=== PATIENT | female | born 1975 | race Caucasian/White ===

== ENCOUNTER → 2019-07-04 07:36 | Outpatient (BNVA) | payer MEDICARE, SELFPAY | PROVIDERS: Family Provider Family Medicine; PCP Family Medicine; Visit Provider Psychiatry & Neurology Psychiatry | DX: F33.2 Major depressive disorder, recurrent severe without psychotic features (principal); F41.1 Generalized anxiety disorder | CPT/HCPCS: 99214 ==

== ENCOUNTER → 2019-07-25 07:35 | Outpatient (BNVA) | payer MEDICARE, SELFPAY | PROVIDERS: Family Provider Family Medicine; PCP Family Medicine; Visit Provider Psychiatry & Neurology Psychiatry | DX: F33.2 Major depressive disorder, recurrent severe without psychotic features (principal); F41.1 Generalized anxiety disorder | CPT/HCPCS: 99214 ==

== ENCOUNTER → 2019-08-23 07:33 | Outpatient (BNVA) | payer MEDICARE, SELFPAY | PROVIDERS: Family Provider Family Medicine; PCP Family Medicine; Visit Provider Psychiatry & Neurology Psychiatry | DX: F41.1 Generalized anxiety disorder (principal); F33.42 Major depressive disorder, recurrent, in full remission; F43.12 Post-traumatic stress disorder, chronic | CPT/HCPCS: 99214 ==

== ENCOUNTER → 2019-09-13 08:03 | Outpatient (BNVA) | payer MEDICARE, SELFPAY | PROVIDERS: Family Provider Family Medicine; PCP Family Medicine; Visit Provider Psychiatry & Neurology Psychiatry | DX: F41.1 Generalized anxiety disorder (principal); F33.42 Major depressive disorder, recurrent, in full remission | CPT/HCPCS: 99214 ==

== ENCOUNTER → 2019-10-17 09:27 | Outpatient (BNVA) | payer MEDICARE, MEDICAID, SELFPAY | PROVIDERS: Family Provider Family Medicine; PCP Family Medicine; Visit Provider Psychiatry & Neurology Psychiatry | DX: F41.1 Generalized anxiety disorder (principal); F33.42 Major depressive disorder, recurrent, in full remission; F43.12 Post-traumatic stress disorder, chronic | CPT/HCPCS: 99213 ==

== ENCOUNTER 2019-11-07 12:31 | Outpatient (CLI) | payer MEDICARE, SELFPAY ==
--- NOTE | 2019-11-07 12:38 | MR_ITS ---
WS: [id number] MRI LUMBAR SPINE NONCONTRAST TECHNIQUE: Sagittal T1, T2 and STIR imaging. Axial T1 and T2 imaging. CLINICAL INFORMATION: LUMBAR RADICULITIS COMPARISON: None. FINDINGS: Mild lumbar curve. No acute compression. Disc space narrowing worse L4-L5 and L5-S1 with endplate deg enerative changes. No acute appearing compression fractures. L1-L2: Minimal disc bulging. Mild facet arthropathy. Spinal canal and foramen are patent. L2-L3: Mild facet arthropathy. Spinal canal and foramen are patent. L3-L4: Minimal annular bulging. Moderate facet arthropathy. Spinal canal and foramen are patent. L4-L5: Mild disc bulging with osteophytic ridging. Narrowing of subarticular recess bilaterally. Mild bilateral foraminal narrowing. L5-S1: Mild disc bulging with osteophytic ridging. Tiny central disc protrusion. Moderate facet arthr opathy. Mild to moderate bilateral foraminal narrowing with contact of the exiting L5 nerve roots ha aterally. Postoperative changes in the cervical spine. Disc osteophyte protrusion in the lower cervical spine w ith mild central canal stenosis C6-7. MR/MR lumbar spine wo con* [id number] IMPRESSION: 1. Mild lumbar curve. No acute compression. No high-grade central canal stenos is. 2. Disc bulging L4-5 with narrowing of the subarticular recess bilaterally and contact of the traversing L5 nerve roots. Mild right greater than left bony fo raminal narrowing. 3. Disc osteophyte complex L5-S1 with endplate ridging. Mild to moderate bilat eral foraminal narrowing with contact of the exiting L5 nerve roots. 4. Mild to moderate facet arthropathy L4-L5 and L5-S1. 5. Prior postoperative changes cervical spine with mild central canal stenosis in the lower cervical spine C6-7.
== END 2019-11-07 12:32 | disposition home or self-care (01) ==
LOC: RADWPI 12:36
PROVIDERS: Family Provider Family Medicine; PCP Family Medicine; Visit Provider Nurse Practitioner
DX: M54.16 Radiculopathy, lumbar region (principal); M51.26 Other intervertebral disc displacement, lumbar region; M25.78 Osteophyte, vertebrae; M47.816 Spondylosis without myelopathy or radiculopathy, lumbar region; M47.817 Spondylosis without myelopathy or radiculopathy, lumbosacral region; M48.02 Spinal stenosis, cervical region
CPT/HCPCS: 72148

== ENCOUNTER → 2019-12-05 08:05 | Outpatient (BNVA) | payer MEDICARE, SELFPAY | PROVIDERS: Family Provider Family Medicine; PCP Family Medicine; Visit Provider Psychiatry & Neurology Psychiatry | DX: F41.1 Generalized anxiety disorder (principal); F33.42 Major depressive disorder, recurrent, in full remission | CPT/HCPCS: 99213 ==

== ENCOUNTER 2020-07-28 09:24 | Outpatient (CLI) | payer MEDICARE, SELFPAY ==
--- NOTE | 2020-07-28 09:31 | MM_ITS ---
WS: [id number] BILATERAL DIGITAL SCREENING MAMMOGRAPHY WITH CAD CLINICAL INFORMATION: SCREENING HISTORY: Screening mammogram. No current complaints. COMPARISON: 015 TECHNIQUE: Bilateral CC and MLO views. FINDINGS: The breasts are composed of heterogeneous fibroglandular density tissue, which can limit the detectio n of small underlying mass lesions. Stable 12 mm asymmetric density upper outer left breast was previ ously evaluated in 2015. No suspicious mass, asymmetry, calcifications, or architectural distortion. No evidence of malignancy. MM/[place] [id number] IMPRESSION: BI-RADS: 2-Benign FOLLOW UP: 1 Year Follow-up Recommend return to annual screening mammography.
== END 2020-07-28 09:25 | disposition home or self-care (01) ==
LOC: RADSHAW 09:29
PROVIDERS: Family Provider Family Medicine; PCP Family Medicine; Visit Provider Family Medicine
DX: Z12.31 Encounter for screening mammogram for malignant neoplasm of breast (principal)
CPT/HCPCS: 77067

== ENCOUNTER → 2020-11-10 07:26 | Outpatient (BNVA) | payer MEDICARE, MEDICAID, SELFPAY | PROVIDERS: Family Provider Family Medicine; PCP Family Medicine; Visit Provider Psychiatry & Neurology Psychiatry | DX: F41.1 Generalized anxiety disorder (principal); F33.0 Major depressive disorder, recurrent, mild | CPT/HCPCS: 99215 ==

== ENCOUNTER → 2020-12-24 08:17 | Outpatient (BNVA) | payer MEDICARE, MEDICAID, SELFPAY | PROVIDERS: Family Provider Family Medicine; PCP Family Medicine; Visit Provider Psychiatry & Neurology Psychiatry | DX: F33.0 Major depressive disorder, recurrent, mild (principal); F41.1 Generalized anxiety disorder; R23.2 Flushing | CPT/HCPCS: 99214 ==

== ENCOUNTER → 2021-03-25 07:00 | Outpatient (BNVA) | payer MEDICARE, MEDICAID, SELFPAY | PROVIDERS: Family Provider Family Medicine; PCP Family Medicine; Visit Provider Psychiatry & Neurology Psychiatry | DX: F33.0 Major depressive disorder, recurrent, mild (principal); F41.1 Generalized anxiety disorder; R23.2 Flushing | CPT/HCPCS: 99214 ==

== ENCOUNTER → 2021-06-26 07:06 | Outpatient (BNVA) | payer MEDICARE, MEDICAID, SELFPAY | PROVIDERS: Family Provider Family Medicine; PCP Family Medicine; Visit Provider Psychiatry & Neurology Psychiatry | DX: F41.1 Generalized anxiety disorder (principal); R23.2 Flushing; F33.42 Major depressive disorder, recurrent, in full remission; F11.23 Opioid dependence with withdrawal | CPT/HCPCS: 99215 ==

== ENCOUNTER → 2021-07-24 07:16 | Outpatient (BNVA) | payer MEDICARE, MEDICAID, SELFPAY | PROVIDERS: Family Provider Family Medicine; PCP Family Medicine; Visit Provider Psychiatry & Neurology Psychiatry | DX: F33.42 Major depressive disorder, recurrent, in full remission (principal); F41.1 Generalized anxiety disorder; R23.2 Flushing | CPT/HCPCS: 99214 ==

== ENCOUNTER 2022-04-23 15:20 | Outpatient (CLI) | payer MEDICARE, SELFPAY ==
--- NOTE | 2022-04-23 15:32 | MM_ITS ---
WS: [id number] BILATERAL 3D TOMOSYNTHESIS DIGITAL SCREENING MAMMOGRAPHY WITH CAD CLINICAL INFORMATION: SCREENING HISTORY: Screening mammogram. No current complaints. COMPARISON: 2020 TECHNIQUE: Bilateral CC and MLO views. FINDINGS: The breasts are composed of heterogeneous fibroglandular density tissue, which can limit the detectio n of small underlying mass lesions. Progressed partially obscured ovoid density upper outer RIGHT celio ast measuring 2.2 CM. This may represent a breast cyst but indeterminant and recommend spot compressi on views and ultrasound for further evaluation. Punctate and lucent centered calcifications. LEFT breast is unremarkable MM/[place] [id number] IMPRESSION: BI-RADS: 0-Incomplete: Need additional imaging evaluation FOLLOW UP: Need Additional Imaging Recommend RIGHT diagnostic mammography with spot compression views and ultrasou nd
== END 2022-04-23 15:21 | disposition home or self-care (01) ==
LOC: RAD 15:23
PROVIDERS: PCP Family Medicine; Visit Provider Family Medicine
DX: Z12.31 Encounter for screening mammogram for malignant neoplasm of breast (principal)
CPT/HCPCS: 77063; 77067

== ENCOUNTER → 2022-05-03 11:34 | Outpatient (BNVA) | payer MEDICARE, SELFPAY | PROVIDERS: PCP Family Medicine; Visit Provider Psychiatry & Neurology Psychiatry | DX: F11.20 Opioid dependence, uncomplicated (principal); F33.42 Major depressive disorder, recurrent, in full remission; F41.1 Generalized anxiety disorder | CPT/HCPCS: 80307 ==

== ENCOUNTER 2022-06-14 11:44 | Outpatient (CLI) | payer MEDICARE, MEDICAID, SELFPAY ==
--- NOTE | 2022-06-14 11:51 | US_ITS ---
WS: [id number] RIGHT 3D TOMOSYNTHESIS DIGITAL MAMMOGRAPHY WITH CAD CLINICAL INFORMATION: ABNORMAL MAMMO HISTORY: Additional views COMPARISON: April 23, 2022 TECHNIQUE: 3 views of the right breast were obtained. FINDINGS: Scattered fibroglandular densities of the right breast. Technique scanning is the 2.2 cm ovoid density upper outer RIGHT breast. This is less distinct on the CC spot compression views. Ultrasound is pending. ULTRASOUND BREAST RIGHT TECHNIQUE: Ultrasound right breast focused area of concern. CLINICAL INFORMATION: ABNORMAL MAMMO FINDINGS: Ultrasound RIGHT breast 11:00 position 5 cm from the nipple. Lobulated simple cyst measuring 1.8 x 0. 8 x 1.8 cm. This has a benign appearance. No other suspicious abnormalities. Recommend return to [facility] screening mammography. US/US breast RT limited* [id number] IMPRESSION: BI-RADS: 2-Benign FOLLOW UP: 1 Year Follow-up Recommend return to annual screening mammography.
== END 2022-06-14 11:45 | disposition home or self-care (01) ==
PROVIDERS: PCP Family Medicine; Visit Provider Family Medicine
DX: R92.8 Other abnormal and inconclusive findings on diagnostic imaging of breast (principal); N60.01 Solitary cyst of right breast
CPT/HCPCS: 76642; 77061; G0279

== ENCOUNTER → 2022-07-12 13:41 | Outpatient (BNVA) | payer MEDICARE, MEDICAID, OTHER, SELFPAY | PROVIDERS: PCP Family Medicine; Visit Provider Psychiatry & Neurology Psychiatry | DX: F11.20 Opioid dependence, uncomplicated (principal); F41.1 Generalized anxiety disorder; F33.42 Major depressive disorder, recurrent, in full remission | CPT/HCPCS: 80307 ==

== ENCOUNTER → 2022-08-27 11:48 | Outpatient (BNVA) | payer MEDICARE, MEDICAID, OTHER, SELFPAY | PROVIDERS: PCP Family Medicine; Visit Provider Psychiatry & Neurology Psychiatry | DX: F33.42 Major depressive disorder, recurrent, in full remission (principal); F41.1 Generalized anxiety disorder; F11.20 Opioid dependence, uncomplicated; Z79.899 Other long term (current) drug therapy | CPT/HCPCS: 80307 ==

== ENCOUNTER → 2022-10-15 11:53 | Outpatient (BNVA) | payer MEDICARE, MEDICAID, OTHER, SELFPAY | PROVIDERS: PCP Family Medicine; Visit Provider Psychiatry & Neurology Psychiatry | DX: F11.20 Opioid dependence, uncomplicated (principal); Z79.899 Other long term (current) drug therapy; F33.42 Major depressive disorder, recurrent, in full remission; F41.1 Generalized anxiety disorder | CPT/HCPCS: 80307 ==

== ENCOUNTER → 2022-12-10 11:37 | Outpatient (BNVA) | payer MEDICARE, MEDICAID, OTHER, SELFPAY | PROVIDERS: PCP Family Medicine; Visit Provider Psychiatry & Neurology Psychiatry | DX: F11.20 Opioid dependence, uncomplicated (principal); F33.1 Major depressive disorder, recurrent, moderate; Z79.899 Other long term (current) drug therapy; F41.1 Generalized anxiety disorder; F10.90 Alcohol use, unspecified, uncomplicated | CPT/HCPCS: 80307 ==

== ENCOUNTER → 2022-12-28 14:19 | Outpatient (BNVA) | payer MEDICARE, MEDICAID, OTHER, SELFPAY | PROVIDERS: PCP Family Medicine; Visit Provider Psychiatry & Neurology Psychiatry | DX: F11.20 Opioid dependence, uncomplicated (principal); F10.90 Alcohol use, unspecified, uncomplicated; F33.1 Major depressive disorder, recurrent, moderate; Z79.899 Other long term (current) drug therapy; F41.1 Generalized anxiety disorder | CPT/HCPCS: 80307 ==

== ENCOUNTER → 2023-02-01 13:21 | Outpatient (BNVA) | payer MEDICARE, MEDICAID, SELFPAY | PROVIDERS: PCP Family Medicine; Visit Provider Nurse Practitioner Family | DX: L91.0 Hypertrophic scar (principal); D22.5 Melanocytic nevi of trunk; L57.8 Other skin changes due to chronic exposure to nonionizing radiation | CPT/HCPCS: 99203 ==

== ENCOUNTER → 2023-02-22 10:58 | Outpatient (BNVA) | payer OTHER, SELFPAY | PROVIDERS: PCP Family Medicine; Visit Provider Psychiatry & Neurology Psychiatry | DX: F11.20 Opioid dependence, uncomplicated (principal); Z79.899 Other long term (current) drug therapy; F41.1 Generalized anxiety disorder; F10.90 Alcohol use, unspecified, uncomplicated; F33.40 Major depressive disorder, recurrent, in remission, unspecified | CPT/HCPCS: 80307 ==

== ENCOUNTER → 2023-04-19 11:21 | Outpatient (BNVA) | payer MEDICARE, MEDICAID, OTHER, SELFPAY | PROVIDERS: PCP Family Medicine; Visit Provider Psychiatry & Neurology Psychiatry | DX: F11.20 Opioid dependence, uncomplicated (principal); Z79.899 Other long term (current) drug therapy; F33.40 Major depressive disorder, recurrent, in remission, unspecified; F10.90 Alcohol use, unspecified, uncomplicated; F41.1 Generalized anxiety disorder | CPT/HCPCS: 80307 ==

== ENCOUNTER 2023-07-19 06:57 | Outpatient (CLI) | payer MEDICARE, OTHER, MEDICAID, SELFPAY ==
--- NOTE | 2023-07-19 07:15 | US_ITS ---
WS: [id number] THYROID ULTRASOUND HISTORY: HYPOTHYROIDISM COMPARISON: None available. Poorly demonstrated thyroid. Combination of technique and body habitus. Right lobe: 0.9 cm x 1.1 cm x 3.7 cm (w x ap x l). Volume: 1.8 cm3. Gland is measuring small. Heterogeneous gland. No well-formed discrete nodule there is no increased v ascularity. Insufficient color Doppler imaging submitted. Left lobe: 0.8 cm x 1.4 cm x 4.2 cm (w x ap x l). Volume: 2.1 cm3. Poorly visualized thyroid. Mildly heterogeneous. Insufficient color Doppler imaging submitted. Isthmus: 0.2 cm. US/US thyroid [id number] IMPRESSION: 1. Technically very limited evaluation of the thyroid gland. 2. Heterogeneous thyroid with no discrete nodules identified. 3. Insufficient color Doppler submitted.
== END 2023-07-19 06:58 | disposition home or self-care (01) ==
LOC: RAD 06:57
PROVIDERS: PCP Family Medicine; Visit Provider Nurse Practitioner Family
DX: R13.10 Dysphagia, unspecified (principal); E03.9 Hypothyroidism, unspecified; J02.9 Acute pharyngitis, unspecified; E07.89 Other specified disorders of thyroid
CPT/HCPCS: 76536

== ENCOUNTER → 2023-09-09 13:07 | Outpatient (BNVA) | payer MEDICARE, OTHER, SELFPAY | PROVIDERS: PCP Family Medicine; Visit Provider Psychiatry & Neurology Psychiatry | DX: F11.20 Opioid dependence, uncomplicated (principal); F10.90 Alcohol use, unspecified, uncomplicated; Z79.899 Other long term (current) drug therapy; F41.1 Generalized anxiety disorder; F33.40 Major depressive disorder, recurrent, in remission, unspecified | CPT/HCPCS: 80307 ==

== ENCOUNTER → 2023-09-13 07:34 | Outpatient (BNVA) | payer MEDICARE, OTHER, SELFPAY | PROVIDERS: PCP Family Medicine; Visit Provider Psychiatry & Neurology Neurology | DX: G62.9 Polyneuropathy, unspecified (principal); R20.0 Anesthesia of skin; R20.2 Paresthesia of skin; M79.671 Pain in right foot; M79.672 Pain in left foot; M79.601 Pain in right arm; M79.602 Pain in left arm | CPT/HCPCS: 99203 ==

== ENCOUNTER 2023-10-14 10:45 | Outpatient (CLI) | payer MEDICARE, OTHER, SELFPAY ==
--- NOTE | 2023-10-14 10:56 | MM_ITS ---
WS: [id number] BILATERAL SCREENING DIGITAL TOMOSYNTHESIS MAMMOGRAM WITH CAD HISTORY: SCREENING COMPARISON: 06/14/2022, 04/23/2022, 07/28/2020 and 06/18/2014 Bilateral CC and MLO views with tomosynthesis and synthetic mammography submitted. Computer aided det ection analyzed. Breast composition: The breasts are heterogeneously dense, which may obscure small masses. No suspici ous masses, microcalcifications or architectural distortion. Bilateral upper outer quadrant asymmetri es are reidentified. Asymmetry in the RIGHT upper outer quadrant is noted to be a cyst on prior ultra sound. Long-term stability of the asymmetry upper outer quadrant LEFT breast. Benign calcifications i n each breast. MM/[place] [id number] IMPRESSION: BI-RADS: 2-Benign FOLLOW UP: 1 Year Follow-up
== END 2023-10-14 10:46 | disposition home or self-care (01) ==
LOC: RAD 10:46
PROVIDERS: PCP Family Medicine; Visit Provider Family Medicine
DX: Z12.31 Encounter for screening mammogram for malignant neoplasm of breast (principal); R92.333 Mammographic heterogeneous density, bilateral breasts; N60.01 Solitary cyst of right breast; R92.1 Mammographic calcification found on diagnostic imaging of breast
CPT/HCPCS: 77063; 77067

== ENCOUNTER → 2023-11-22 11:17 | Outpatient (BNVA) | payer MEDICARE, OTHER, SELFPAY | PROVIDERS: PCP Family Medicine; Referring Provider Psychiatry & Neurology Neurology; Visit Provider Psychiatry & Neurology Neurology | DX: R20.2 Paresthesia of skin (principal); M79.601 Pain in right arm; M79.602 Pain in left arm; M79.671 Pain in right foot; M79.672 Pain in left foot; R20.0 Anesthesia of skin | CPT/HCPCS: 95913 ==

== ENCOUNTER → 2023-11-25 09:33 | Outpatient (BNVA) | payer OTHER, MEDICARE, SELFPAY | PROVIDERS: PCP Family Medicine; Visit Provider Podiatrist Foot & Ankle Surgery | DX: M79.671 Pain in right foot (principal); M79.672 Pain in left foot; G62.9 Polyneuropathy, unspecified; G57.53 Tarsal tunnel syndrome, bilateral lower limbs | CPT/HCPCS: 73630 ==

== ENCOUNTER → 2023-11-29 12:19 | Outpatient (BNVA) | payer MEDICARE, OTHER, SELFPAY | PROVIDERS: PCP Family Medicine; Visit Provider Psychiatry & Neurology Neurology | DX: G57.53 Tarsal tunnel syndrome, bilateral lower limbs (principal); G62.9 Polyneuropathy, unspecified; R20.0 Anesthesia of skin; R20.2 Paresthesia of skin; M79.671 Pain in right foot; M79.672 Pain in left foot; M79.601 Pain in right arm; M79.602 Pain in left arm | CPT/HCPCS: 99214 ==

== ENCOUNTER → 2024-02-03 11:20 | Outpatient (BNVA) | payer MEDICARE, OTHER, SELFPAY | PROVIDERS: PCP Family Medicine; Visit Provider Psychiatry & Neurology Psychiatry | DX: F11.20 Opioid dependence, uncomplicated (principal); Z79.899 Other long term (current) drug therapy; F41.1 Generalized anxiety disorder; F10.90 Alcohol use, unspecified, uncomplicated; F33.40 Major depressive disorder, recurrent, in remission, unspecified | CPT/HCPCS: 80307 ==

== ENCOUNTER → 2024-03-20 07:37 | Outpatient (BNVA) | payer MEDICARE, OTHER, SELFPAY | PROVIDERS: PCP Family Medicine; Visit Provider Podiatrist Foot & Ankle Surgery | DX: M79.671 Pain in right foot (principal); L60.0 Ingrowing nail; G62.9 Polyneuropathy, unspecified; G57.53 Tarsal tunnel syndrome, bilateral lower limbs; M77.9 Enthesopathy, unspecified | CPT/HCPCS: 11730; 11750; 73630; 99213; A6219 ==

== ENCOUNTER → 2024-04-05 13:03 | Outpatient (BNVA) | payer MEDICARE, OTHER, SELFPAY | PROVIDERS: PCP Family Medicine; Referring Provider Psychiatry & Neurology Neurology; Visit Provider Psychiatry & Neurology Neurology | DX: R20.2 Paresthesia of skin (principal); R20.0 Anesthesia of skin | CPT/HCPCS: 95911; 95912 ==

== ENCOUNTER → 2024-04-18 13:01 | Outpatient (BNVA) | payer MEDICARE, OTHER, SELFPAY | PROVIDERS: PCP Family Medicine; Visit Provider Psychiatry & Neurology Neurology | DX: G57.53 Tarsal tunnel syndrome, bilateral lower limbs (principal); R20.2 Paresthesia of skin; M79.601 Pain in right arm; M79.602 Pain in left arm; M79.671 Pain in right foot; M79.672 Pain in left foot; R20.0 Anesthesia of skin; G56.00 Carpal tunnel syndrome, unspecified upper limb; G57.50 Tarsal tunnel syndrome, unspecified lower limb; G62.9 Polyneuropathy, unspecified | CPT/HCPCS: 99212 ==

== ENCOUNTER → 2024-04-24 10:43 | Outpatient (BNVA) | payer MEDICARE, OTHER, SELFPAY | PROVIDERS: PCP Family Medicine; Visit Provider Orthopaedic Surgery | DX: G56.03 Carpal tunnel syndrome, bilateral upper limbs (principal); M25.531 Pain in right wrist; M25.532 Pain in left wrist | CPT/HCPCS: 73130; 99204 ==

== ENCOUNTER → 2024-05-01 09:44 | Outpatient (BNVA) | payer MEDICARE, OTHER, SELFPAY | PROVIDERS: PCP Family Medicine; Visit Provider Podiatrist Foot & Ankle Surgery | DX: M79.89 Other specified soft tissue disorders (principal); G57.53 Tarsal tunnel syndrome, bilateral lower limbs; G62.9 Polyneuropathy, unspecified; M77.9 Enthesopathy, unspecified; G57.51 Tarsal tunnel syndrome, right lower limb | CPT/HCPCS: 99213 ==

== ENCOUNTER → 2024-05-04 11:38 | Outpatient (BNVA) | payer OTHER, MEDICARE, SELFPAY | PROVIDERS: PCP Family Medicine; Visit Provider Psychiatry & Neurology Psychiatry | DX: F41.1 Generalized anxiety disorder (principal); F33.40 Major depressive disorder, recurrent, in remission, unspecified; F11.20 Opioid dependence, uncomplicated; F10.90 Alcohol use, unspecified, uncomplicated; Z79.899 Other long term (current) drug therapy | CPT/HCPCS: 80307 ==

== ENCOUNTER → 2024-05-29 08:24 | Outpatient (BNVA) | payer MEDICARE, OTHER, SELFPAY | PROVIDERS: PCP Family Medicine; Visit Provider Anesthesiology Pain Medicine | DX: M54.9 Dorsalgia, unspecified (principal) | CPT/HCPCS: 99204 ==

== ENCOUNTER → 2024-08-22 13:39 | Outpatient (BNVA) | payer OTHER, MEDICARE, SELFPAY | PROVIDERS: PCP Family Medicine; Visit Provider Psychiatry & Neurology Psychiatry | DX: F11.20 Opioid dependence, uncomplicated (principal); Z79.899 Other long term (current) drug therapy | CPT/HCPCS: 80307 ==

== ENCOUNTER → 2024-09-26 15:31 | Outpatient (BNVA) | payer MEDICARE, OTHER, SELFPAY | PROVIDERS: PCP Family Medicine; Visit Provider Psychiatry & Neurology Neurology | DX: G57.53 Tarsal tunnel syndrome, bilateral lower limbs (principal); R20.2 Paresthesia of skin; M79.601 Pain in right arm; M79.602 Pain in left arm; M79.671 Pain in right foot; M79.672 Pain in left foot; R20.0 Anesthesia of skin; G56.00 Carpal tunnel syndrome, unspecified upper limb; G57.50 Tarsal tunnel syndrome, unspecified lower limb; G62.9 Polyneuropathy, unspecified; G56.03 Carpal tunnel syndrome, bilateral upper limbs | CPT/HCPCS: 99212 ==

== ENCOUNTER 2024-12-05 09:57 | Outpatient (CLI) | payer MEDICARE, OTHER, SELFPAY ==
--- NOTE | 2024-12-05 10:03 | MM_ITS ---
WS: [id number] BILATERAL SCREENING DIGITAL TOMOSYNTHESIS MAMMOGRAM WITH CAD HISTORY: SCREENING COMPARISON: 10/14/2023, 06/14/2022, 07/28/2020 and 06/18/2014 Bilateral CC and MLO views with tomosynthesis and synthetic mammography submitted. Computer aided detection analyzed. Breast composition: The breasts are heterogeneously dense, which may obscure small masses. No suspicious masses, microcalcifications or architectural distortion. Focal asymmetry in the lateral LEFT breast at a posterior depth has been present on prior studies with no progression. Present since 2014. Ad ditional bilateral calcifications without suspicious grouping. No distortion. MM/MM [place] tomosynthesis [id number] IMPRESSION: BI-RADS: 2 - Benign FOLLOW UP: 1 Year Follow-up
== END 2024-12-05 09:58 | disposition home or self-care (01) ==
PROVIDERS: PCP Nurse Practitioner Family; Visit Provider Nurse Practitioner Family
DX: Z12.31 Encounter for screening mammogram for malignant neoplasm of breast (principal); R23.2 Flushing; R45.4 Irritability and anger; R68.82 Decreased libido; G47.00 Insomnia, unspecified; R92.323 Mammographic fibroglandular density, bilateral breasts; N64.89 Other specified disorders of breast; R92.1 Mammographic calcification found on diagnostic imaging of breast
CPT/HCPCS: 77063; 77067

== ENCOUNTER 2025-02-12 13:45 | Outpatient (CLI) | payer MEDICARE, OTHER, SELFPAY ==
--- NOTE | 2025-02-12 13:53 | XR_ITS ---
WS: [id number] Chest 2 views, 02/12/2025 Clinical Data: COUGH UNSPECIFIED Comparison: Portable chest, 07/21/2013 Findings: No nodules, masses or effusions are seen. The heart is normal. The pulmonary vascularity is not increased. No pneumonia or pneumothorax is seen. There are anterior cervical disc fusions. XR/XR chest 2V* [id number] Impression: Negative chest.
== END 2025-02-12 13:46 | disposition home or self-care (01) ==
LOC: RAD 13:48
PROVIDERS: PCP Nurse Practitioner Family; Visit Provider Nurse Practitioner Family
DX: R05.9 Cough, unspecified (principal); M43.22 Fusion of spine, cervical region
CPT/HCPCS: 71046